=== PATIENT | female | born 1975 | race Caucasian/White ===

== ENCOUNTER 2021-03-12 09:44 | Emergency (ER) | payer MEDICAID ==
[~2021-03-12] VITALS: Ht 170.2 cm; Wt 77.0 kg
[2021-03-12] MEDS ORDERED: SODIUM CHLORIDE 0.9% 1,000 ML IV ONE (10:15)
[2021-03-12 11:29] LABS: BASOPHILS % 0.9 % (0.0-2.0); EOSINOPHILS % 1.3 % (0.0-5.0); HEMATOCRIT. 33.4 % (36.0-48.0); HEMOGLOBIN. 10.1 g/dL (12.0-16.0); LYMPHOCYTES % 13.3 % (20.0-50.0); MEAN CORPUSCULAR HEMOGLOBIN 18.8 pg (28.0-32.0); MEAN PLATELET VOLUME 9.3 fl (7.4-10.4); MONOCYTES % 7.7 % (2.0-8.0); NEUTROPHILS % 76.8 % (40.0-76.0); PLATELET 212 x1000/uL (130-400); RED BLOOD CELL COUNT 5.39 mill/uL (4.2-5.4); RED CELL DISTRIBUTION WIDTH 18.3 % (11.6-14.6)
[2021-03-12 11:40] LABS: CHLORIDE 109 mEq/L (98-107)
[2021-03-12 11:47] LABS: HCG SCREEN NEGATIVE
[2021-03-12 12:28] LABS: PLATELET ESTIMATE NORMAL
[2021-03-12] MEDS ORDERED: LABETALOL HCL 20MG/4ML CARPUJECT IV NR (14:30)
[2021-03-12 16:35] VITALS: BP 157/91
== END 2021-03-12 16:48 | disposition home or self-care (01) ==
LOC: ER 09:44
DX: I10 Essential (primary) hypertension (principal); T40.995A Adverse effect of other psychodysleptics [hallucinogens], initial encounter; Y92.9 Unspecified place or not applicable
CPT/HCPCS: 36415; 80053; 84484; 84703; 85025; 93005; 96361; 96374; 99285; J3490; J7030; J7040; Z7610

== ENCOUNTER 2021-06-26 10:49 | Emergency (ER) | payer MEDICAID ==
[~2021-06-26] VITALS: Ht 170.2 cm; Wt 100.0 kg
[2021-06-26] MEDS ORDERED: DEXAMETHASONE 4MG/ML 1ML VIAL IM ONE (11:30)
[2021-06-26 11:41] VITALS: BP 148/70
[2021-06-27] MEDS ORDERED: AMOX-424 PO (00:38)
[2021-06-27] MEDS ORDERED: ACET-2708 PO (00:38)
== END 2021-06-26 11:41 | disposition home or self-care (01) ==
LOC: ER 10:53
DX: K13.79 Other lesions of oral mucosa (principal)
CPT/HCPCS: 96372; 99283; J1100

== ENCOUNTER 2021-10-25 21:50 | Inpatient (IN) | payer MEDICAID, OTHER ==
[~2021-10-25] VITALS: Ht 172.7 cm; Wt 89.9 kg
[~2021-10-25 21:50] MED LIST: ACET-2708 PO; AMOX-424 PO
[2021-10-25] MEDS ORDERED: MORPHINE SULFATE 4 MG/ML CPJ (NOT FOR IM USE) IV ONE (23:15)
[2021-10-25] MEDS ORDERED: SODIUM CHLORIDE 0.9% 1,000 ML IV ONE (23:15)
[2021-10-25] MEDS ORDERED: ONDANSETRON HCL 4MG/2ML INJ IV ONE (23:15)
[2021-10-26 00:21] LABS: HEMATOCRIT. 41.6 % (36.0-48.0); HEMOGLOBIN. 13.8 g/dL (12.0-16.0); MEAN CORPUSCULAR HEMOGLOBIN 26.1 pg (28.0-32.0); MEAN CORPUSCULAR VOLUME 78.5 fL (81.0-99.0); MEAN PLATELET VOLUME 8.7 fl (7.4-10.4); PLATELET 230 x1000/uL (130-400); RED CELL DISTRIBUTION WIDTH 15.6 % (11.6-14.6)
[2021-10-26] MEDS ORDERED: SODIUM CHLORIDE 0.9% 1,000 ML IV ONE (00:30)
[2021-10-26] MEDS ORDERED: VANCOMYCIN 1 G PREMIX 200 ML IV SCH (03:00)
[2021-10-26] MEDS ORDERED: PIPERACILLIN/TAZOBACTAM 3.375GM/50ML PREMIX IV ONE (03:00)
[2021-10-26] MEDS ORDERED: PIPERACILLIN/TAZ 3.375G PREMIX 50 ML IV NR (03:15)
[2021-10-26] MEDS ORDERED: ONDANSETRON HCL 4MG/2ML INJ IV NR (03:45)
[2021-10-26] MEDS ORDERED: MORPHINE SULFATE 4 MG/ML CPJ (NOT FOR IM USE) IV NR (03:45)
[2021-10-26 05:08] LABS: PLATELET ESTIMATE NORMAL
[2021-10-26] MEDS ORDERED: CLINDAMYCIN 600 MG in DEXTROSE 5% WATER 50 ML IV ONE (05:15)
[2021-10-26] MEDS ORDERED: CLINDAMYCIN 600MG PREMIX 50 ML IV NR (05:30)
[2021-10-26 06:07] LABS: CREATINE KINASE 39 IU/L (26-192)
[2021-10-26 10:00] VITALS: BP 112/62
[2021-10-26] MEDS ORDERED: ONDANSETRON HCL 4MG/2ML INJ IV PRN (12:15)
[2021-10-26] MEDS ORDERED: HYDROCODONE/ACETAMINOPHEN 10/325MG TABLET PO PRN (12:15)
[2021-10-26] MEDS ORDERED: CLINDAMYCIN 600 MG in DEXTROSE 5% WATER 50 ML IV SCH (12:15)
[2021-10-26] MEDS ORDERED: ENOXAPARIN 30MG/0.3ML SYR SUBCUT SCH (12:30)
[2021-10-26] MEDS ORDERED: NALOXONE HCL 0.4MG/ML VIAL IV PRN (12:45)
[2021-10-26] MEDS: KETOROLAC 30MG/ML VIAL IV PRN (12:52)
[2021-10-26 13:12] VITALS: BP 121/58
[2021-10-26] MEDS ORDERED: QUET100T34 MT (13:23)
[2021-10-26 14:41] LABS: CLARITY URINE CLOUDY (CLEAR); COLOR URINE YELLOW (YELLOW); KETONES URINE NEGATIVE (NEGATIVE); LEUKOCYTE ESTERASE URINE TRACE (NEGATIVE); NITRITE URINE POSITIVE (NEGATIVE); OCCULT BLOOD URINE NEGATIVE (NEGATIVE); PH URINE 5.5 (4.5-8.0); PROTEIN URINE 1+ (NEGATIVE); SPECIFIC GRAVITY URINE 1.019 (1.005-1.030); UROBILINOGEN URINE 0.2 E.U./dL (0.2-1.0)
[2021-10-26 14:59] LABS: *BARBITURATES SCREEN URINE NEGATIVE (NEGATIVE); *BENZODIAZEPINES SCREEN URINE NEGATIVE (NEGATIVE); *COCAINE SCREEN URINE NEGATIVE (NEGATIVE); METHADONE URINE SCREEN NEGATIVE (NEGATIVE)
[2021-10-26 15:10] LABS: *AMPHETAMINES SCREEN URINE PRESUMTIVE POSITIVE (NEGATIVE); CANNABINOID URINE SCREEN PRESUMTIVE POSITIVE (NEGATIVE); OPIATES URINE SCREEN PRESUMTIVE POSITIVE (NEGATIVE); PHENCYCLIDINE URINE SCREEN PRESUMTIVE POSITIVE (NEGATIVE)
[2021-10-26 16:00] VITALS: BP 118/80
[2021-10-26] MEDS: CLINDAMYCIN 600MG PREMIX 50 ML IV SCH ×2 (17:33→22:20)
[2021-10-26] MEDS: ENOXAPARIN 40MG/0.4ML SYR SUBCUT SCH (17:33)
[2021-10-26] MEDS ORDERED: CEFTRIAXONE 1 G PREMIX 50 ML IV SCH (18:45)
[2021-10-26 20:00] VITALS: BP 107/56
[2021-10-26] MEDS: TERBINAFINE HCL 1% CREAM 30GM TOP SCH (21:22)
[2021-10-26] MEDS: CEFTRIAXONE 1,000 MG in DEXTROSE 5% WATER 50 ML IV SCH (21:22)
[2021-10-26] MEDS: QUETIAPINE FUMARATE 50MG TABLET PO SCH (23:28)
[2021-10-26] MEDS ORDERED: *PATIENT'S OWN MEDICATION STORAGE XX SCH (23:30)
[2021-10-27] VITALS: BP_SYST 119; BP_SYST 121; BP_DIAS 68; BP_DIAS 83
[2021-10-27 04:00] VITALS: BP 113/51
[2021-10-27] MEDS: CLINDAMYCIN 600MG PREMIX 50 ML IV SCH ×3 (05:30→23:03)
[2021-10-27 06:19] LABS: BASOPHILS % 0.2 % (0.0-2.0); EOSINOPHILS % 0.9 % (0.0-5.0); HEMATOCRIT. 32.6 % (36.0-48.0); HEMOGLOBIN. 10.9 g/dL (12.0-16.0); LYMPHOCYTES % 14.3 % (20.0-50.0); MEAN CORPUSCULAR HEMOGLOBIN 26.1 pg (28.0-32.0); MEAN CORPUSCULAR VOLUME 78.2 fL (81.0-99.0); MEAN PLATELET VOLUME 8.9 fl (7.4-10.4); MONOCYTES % 8.3 % (2.0-8.0); NEUTROPHILS % 76.3 % (40.0-76.0); PLATELET 162 x1000/uL (130-400); RED BLOOD CELL COUNT 4.17 mill/uL (4.2-5.4); RED CELL DISTRIBUTION WIDTH 15.8 % (11.6-14.6)
[2021-10-27 06:25] LABS: CHLORIDE 108 mEq/L (98-107)
[2021-10-27 08:00] VITALS: BP 124/67
[2021-10-27 12:00] VITALS: BP 139/76
[2021-10-27] MEDS: ENOXAPARIN 40MG/0.4ML SYR SUBCUT SCH (14:16)
[2021-10-27 16:00] VITALS: BP 128/82
[2021-10-27 20:00] VITALS: BP 112/63
[2021-10-27] MEDS: TERBINAFINE HCL 1% CREAM 30GM TOP SCH (20:14)
[2021-10-27] MEDS: QUETIAPINE FUMARATE 50MG TABLET PO SCH (20:14)
[2021-10-27] MEDS: CEFTRIAXONE 1,000 MG in DEXTROSE 5% WATER 50 ML IV SCH (20:15)
[2021-10-27] MEDS: KETOROLAC 30MG/ML VIAL IV PRN (21:00)
[2021-10-28] VITALS: BP 167/98
[2021-10-28 04:00] VITALS: BP 146/89
[2021-10-28] MEDS: CLINDAMYCIN 600MG PREMIX 50 ML IV SCH ×3 (05:34→20:21)
[2021-10-28 08:00] VITALS: BP 135/88
[2021-10-28 12:00] VITALS: BP 153/93
[2021-10-28] MEDS: ENOXAPARIN 40MG/0.4ML SYR SUBCUT SCH (14:40)
[2021-10-28 16:00] VITALS: BP 146/89
[2021-10-28 17:11] LABS: BASOPHILS % 0.6 % (0.0-2.0); EOSINOPHILS % 1.7 % (0.0-5.0); HEMATOCRIT. 35.3 % (36.0-48.0); HEMOGLOBIN. 11.4 g/dL (12.0-16.0); LYMPHOCYTES % 16.9 % (20.0-50.0); MEAN CORPUSCULAR HEMOGLOBIN 25.4 pg (28.0-32.0); MEAN CORPUSCULAR VOLUME 78.9 fL (81.0-99.0); MEAN PLATELET VOLUME 8.9 fl (7.4-10.4); MONOCYTES % 9.8 % (2.0-8.0); PLATELET 210 x1000/uL (130-400); RED BLOOD CELL COUNT 4.47 mill/uL (4.2-5.4); RED CELL DISTRIBUTION WIDTH 15.9 % (11.6-14.6)
[2021-10-28 17:26] LABS: CHLORIDE 108 mEq/L (98-107)
[2021-10-28] MEDS ORDERED: CEPH500C2 MT ×2 (17:27)
[2021-10-28] MEDS ORDERED: CRUT1EAC36 MC ×2 (17:27)
[2021-10-28] MEDS ORDERED: HYDR-4009 PO ×2 (17:27)
[2021-10-28 20:00] VITALS: BP 129/76
[2021-10-28] MEDS: CEFTRIAXONE 1,000 MG in DEXTROSE 5% WATER 50 ML IV SCH (20:21)
[2021-10-28] MEDS: QUETIAPINE FUMARATE 50MG TABLET PO SCH (20:23)
[2021-10-28] MEDS: TERBINAFINE HCL 1% CREAM 30GM TOP SCH (20:24)
[2021-10-29] VITALS: BP 132/78
[2021-10-29 04:00] VITALS: BP 144/79
[2021-10-29] MEDS: CLINDAMYCIN 600MG PREMIX 50 ML IV SCH (05:56)
[2021-10-29 08:00] VITALS: BP 145/90
[2021-10-29 11:08] VITALS: BP_SYST 145
[2021-10-29 12:00] VITALS: BP 156/90
[2021-10-29] MEDS ORDERED: CEPH500C2 MT (12:41)
[2021-10-29] MEDS ORDERED: HYDR-4001 MT (12:41)
[2021-10-29] MEDS ORDERED: AMLO2.5T45 MT (12:45)
[2021-10-29 14:23] LABS: BASOPHILS % 0.4 % (0.0-2.0); EOSINOPHILS % 1.2 % (0.0-5.0); HEMATOCRIT. 36.6 % (36.0-48.0); HEMOGLOBIN. 11.8 g/dL (12.0-16.0); LYMPHOCYTES % 12.5 % (20.0-50.0); MEAN CORPUSCULAR HEMOGLOBIN 25.3 pg (28.0-32.0); MEAN CORPUSCULAR VOLUME 78.3 fL (81.0-99.0); MEAN PLATELET VOLUME 8.8 fl (7.4-10.4); MONOCYTES % 7.3 % (2.0-8.0); NEUTROPHILS % 78.6 % (40.0-76.0); PLATELET 240 x1000/uL (130-400); RED BLOOD CELL COUNT 4.67 mill/uL (4.2-5.4); RED CELL DISTRIBUTION WIDTH 15.6 % (11.6-14.6)
[2021-10-29 14:30] LABS: CHLORIDE 107 mEq/L (98-107)
== END 2021-10-29 15:10 | disposition home or self-care (01) | DRG 720 ==
LOC: ER 21:50 → 8WST 10-26 05:18 → ENRESERV 10-26 07:23
PROVIDERS: ADMIT Internal Medicine; ATTEND Internal Medicine
DX: A41.9 Sepsis, unspecified organism (principal); E87.1 Hypo-osmolality and hyponatremia; E66.9 Obesity, unspecified; F17.210 Nicotine dependence, cigarettes, uncomplicated; F20.9 Schizophrenia, unspecified; I10 Essential (primary) hypertension; N39.0 Urinary tract infection, site not specified; R26.2 Difficulty in walking, not elsewhere classified; F15.10 Other stimulant abuse, uncomplicated; F16.10 Hallucinogen abuse, uncomplicated; Z20.822 Contact with and (suspected) exposure to COVID-19; L03.116 Cellulitis of left lower limb; Z59.00 Homelessness unspecified; Z79.1 Long term (current) use of non-steroidal anti-inflammatories (NSAID); Z79.2 Long term (current) use of antibiotics; Z79.899 Other long term (current) drug therapy; Z71.51 Drug abuse counseling and surveillance of drug abuser; Z59.01 Sheltered homelessness
CPT/HCPCS: 36415; 73552; 73590; 73700; 80048; 80305; 81003; 82550; 83605; 85025; 87426; 93971; 97162; 99285; C1893; J0696; J1650; J1885; J2270; J2405; J2543; J3370; J3490; J7030; J7060

== ENCOUNTER 2023-02-13 09:28 | Emergency (ER) | payer MEDICAID, OTHER ==
[~2023-02-13] VITALS: Ht 172.7 cm; Wt 92.0 kg
[~2023-02-13 09:28] MED LIST changes: +AMLO2.5T45 MT; -AMOX-424 PO; +CEPH500C2 MT; +HYDR-4001 MT; +QUET100T34 MT
[2023-02-13 09:31] VITALS: BP 157/99
[2023-02-13] MEDS ORDERED: LIDOCAINE HCL 1% 20ML VIAL (Pyxis) INJ INFIL ONE (10:00)
== END 2023-02-13 11:40 | disposition home or self-care (01) ==
LOC: ER 09:46
DX: S63.284A Dislocation of proximal interphalangeal joint of right ring finger, initial encounter (principal); I10 Essential (primary) hypertension; F20.9 Schizophrenia, unspecified; F15.10 Other stimulant abuse, uncomplicated; F16.10 Hallucinogen abuse, uncomplicated; W01.0XXA Fall on same level from slipping, tripping and stumbling without subsequent striking against object, initial encounter; Y93.89 Activity, other specified; Y92.018 Other place in single-family (private) house as the place of occurrence of the external cause
CPT/HCPCS: 26770; 73140; 99284; J3490

== ENCOUNTER 2023-12-20 12:03 | Emergency (ER) | payer MEDICAID, OTHER ==
[~2023-12-20] VITALS: Ht 165.1 cm; Wt 77.0 kg
[2023-12-20 12:05] VITALS: O2SAT 98
[2023-12-20 12:49] LABS: EOSINOPHILS % 1.9 % (0.0-5.0); HEMATOCRIT. 33.3 % (36.0-48.0); HEMOGLOBIN. 10.1 g/dL (12.0-16.0); LYMPHOCYTES % 15.3 % (20.0-50.0); MEAN CORPUSCULAR HEMOGLOBIN 20.8 pg (28.0-32.0); MEAN CORPUSCULAR HGB CONC 30.2 g/dL (31.0-37.0); MEAN CORPUSCULAR VOLUME 68.7 fL (81.0-99.0); MEAN PLATELET VOLUME 8.1 fl (7.4-10.4); MONOCYTES % 6.3 % (2.0-8.0); NEUTROPHILS % 75.5 % (40.0-76.0); PLATELET 234 x1000/uL (130-400); RED BLOOD CELL COUNT 4.84 mill/uL (4.2-5.4); WHITE BLOOD COUNT 7.5 x1000/uL (4.5-11.0)
[2023-12-20 13:08] LABS: ADD RBC MORPHOLOGY YES; DIFFERENTIAL COMMENT 1
[2023-12-20 13:14] LABS: ALANINE AMINOTRANSFERASE 19 IU/L (10-49); ALBUMIN 3.7 g/dL (3.2-4.8); ASPARTATE AMINOTRANSFERASE 20 IU/L (<34); BILIRUBIN TOTAL 0.2 mg/dL (0.1-1.0); CALCIUM 8.9 mg/dL (8.7-10.4); CARBON DIOXIDE 22 mEq/L (21-32); CHLORIDE 111 mEq/L (98-107); CREATININE 0.7 mg/dL (0.6-1.0); GLUCOSE 103 mg/dL (70-105); POTASSIUM 3.6 mEq/L (3.5-5.1); PROTEIN TOTAL 6.7 g/dL (6.0-8.3); SODIUM 140 mEq/L (136-145); TROPONIN I HIGH SENSITIVITY 10 ng/L (3.0-34); UREA NITROGEN BLOOD 19 mg/dL (9-23)
[2023-12-20 13:18] LABS: HCG SCREEN NEGATIVE
[2023-12-20 13:19] LABS: ETHANOL BLOOD < 10 mg/dL (<10)
[2023-12-20 14:03] LABS: ANISOCYTOSIS 2+; PLATELET ESTIMATE NORMAL
[2023-12-20 14:04] LABS: MICROCYTOSIS 2+
[2023-12-20 14:14] LABS: *AMPHETAMINES SCREEN URINE PRESUMPTIVE POSITIVE (NEGATIVE); *BARBITURATES SCREEN URINE NEGATIVE (NEGATIVE); *BENZODIAZEPINES SCREEN URINE NEGATIVE (NEGATIVE); *COCAINE SCREEN URINE PRESUMPTIVE POSITIVE (NEGATIVE); CANNABINOID URINE SCREEN NEGATIVE (NEGATIVE); ECSTASY MDMA SCREEN URINE NEGATIVE (NEGATIVE); METHADONE URINE SCREEN Neg (NEGATIVE); OPIATES URINE SCREEN NEGATIVE (NEGATIVE); PHENCYCLIDINE URINE SCREEN PRESUMTIVE POSITIVE (NEGATIVE)
[2023-12-20] MEDS ORDERED: CLONIDINE 0.1MG TABLET PO NR (14:15)
[2023-12-20] MEDS ORDERED: HYDR25TA MT (16:53)
[2023-12-20 17:25] VITALS: BP 160/90; PULSE 85; RESP 16; TEMP 98.2
== END 2023-12-20 17:32 | disposition home or self-care (01) ==
LOC: ER 12:03
DX: F19.10 Other psychoactive substance abuse, uncomplicated (principal); I10 Essential (primary) hypertension; D50.9 Iron deficiency anemia, unspecified
CPT/HCPCS: 80053; 80305; 81025; 80320; 84703; 85025; 84484; 36415; 71045; 70450; 99285; Z7610; G0480